=== PATIENT | male | born 1970 | race Caucasian/White ===

== ENCOUNTER 2020-06-28 11:14 | Emergency (ER) | payer OTHER ==
[2020-06-28] MEDS ORDERED: MEDROL DOSEPAK 24 MG PO (12:55)
[2020-06-28] MEDS ORDERED: CYCLOBENZAPRINE10 MG PO (12:55)
== END 2020-06-28 13:19 | disposition home or self-care (01) ==
LOC: ER1 11:14
DX: M54.41 Lumbago with sciatica, right side (principal); M54.42 Lumbago with sciatica, left side; I10 Essential (primary) hypertension; F17.210 Nicotine dependence, cigarettes, uncomplicated
CPT/HCPCS: 96372; 99283; J1885

== ENCOUNTER → 2020-10-06 | Outpatient (CLI) | payer OTHER ==
[~2020-10-06] MED LIST: CYCLOBENZAPRINE10 MG PO; MEDROL DOSEPAK 24 MG PO
== END ==
LOC: KOH-I 13:38
DX: M54.16 Radiculopathy, lumbar region (principal)
CPT/HCPCS: 72148